=== PATIENT | male | born 1950 | race Caucasian/White ===

== ENCOUNTER 2017-03-04 16:31 | Emergency (ER) | payer MEDICARE ==
[~2017-03-04] VITALS: Ht 180.3 cm; Wt 95.0 kg
[~2017-03-04 16:31] MED LIST: ASPI-496 PO; CARB1TAB13 PO; CARB1TAB3 PO; CHOL400D3 PO; HYDR-3240 PO; MULT-208 PO; NIAC500T9 PO; ROTI1PAT4 TP; SAW450CA2 PO; SIMV20TA3 PO; VALS1TAB24 PO
[2017-03-04 16:48] VITALS: BP 100/64
[2017-03-04] MEDS ORDERED: LIDOCAINE 1%, 20ML SQ ONE (17:00)
[2017-03-04] MEDS ORDERED: LIDOCAINE 1%, 20ML ONE (17:44)
== END 2017-03-04 18:27 | disposition home or self-care (01) ==
LOC: ED 18:21
DX: S01.01XA Laceration without foreign body of scalp, initial encounter (principal); S06.310A Contusion and laceration of right cerebrum without loss of consciousness, initial encounter; G20 Parkinson's disease; E78.5 Hyperlipidemia, unspecified; I10 Essential (primary) hypertension; W18.09XA Striking against other object with subsequent fall, initial encounter; Y93.89 Activity, other specified; Y92.009 Unspecified place in unspecified non-institutional (private) residence as the place of occurrence of the external cause; Y99.9 Unspecified external cause status
CPT/HCPCS: 12001; 70450; 99284

== ENCOUNTER 2019-09-02 05:24 | Day surgery (SDC) | payer MEDICARE ==
[~2019-09-02] VITALS: Ht 177.8 cm; Wt 95.2 kg
[~2019-09-02 05:24] MED LIST changes: +AMAN100T PO; +CARB1CAP5 PO; +CARB1TAB47 PO; +OLME1TAB40 PO; +OMEP-110 PO; -SAW450CA2 PO; +SAW450CA7 PO
[2019-09-02] MEDS ORDERED: LACTATED RINGERS 1,000 ML IV SCH (06:10)
[2019-09-02 06:14] VITALS: BP 117/82
[2019-09-02] MEDS ORDERED: BUPIVACAINE/PF 0.5% ONE (06:54)
[2019-09-02] MEDS ORDERED: BACITRACIN OINT 500U/GM, 15 GM ONE (06:54)
[2019-09-02] MEDS ORDERED: BACITRACIN 50,000 UNIT ONE (06:54)
[2019-09-02] MEDS ORDERED: EPINEPHRINE 1 MG/ML, 1ML ONE (06:54)
[2019-09-02] MEDS ORDERED: THROMBIN 5,000 UNIT VIAL TP ONE (06:54)
[2019-09-02] MEDS ORDERED: FENTANYL PF 250 MCG/5ML ONE (07:18)
[2019-09-02] MEDS ORDERED: MIDAZOLAM 1 MG/ML, 2ML ONE (07:18)
[2019-09-02] MEDS ORDERED: PROPOFOL 10 MG/ML, 20ML ONE (07:19)
[2019-09-02] MEDS ORDERED: CEFAZOLIN 1,000 MG ONE ×2 (07:21)
[2019-09-02] MEDS ORDERED: DEXAMETHASONE 4 MG/ML, 1ML ONE ×2 (07:21)
[2019-09-02] MEDS ORDERED: LIDOCAINE-MPF 2% ,5ML ONE (07:21)
[2019-09-02] MEDS ORDERED: ACETAMINOPHEN 500 MG TABLET PO ONE (07:30)
[2019-09-02] MEDS ORDERED: ONDANSETRON ODT 8 MG PO ONE (07:30)
[2019-09-02] MEDS ORDERED: SUGAMMADEX 200 MG/2 ML IVPush ONE (07:42)
[2019-09-02] MEDS ORDERED: ROCURONIUM 10 MG/ML,10ML ONE (07:42)
[2019-09-02] MEDS ORDERED: hydrALAzine 20 MG/ML, 1ML IV PRN (08:30)
[2019-09-02] MEDS ORDERED: METOCLOPRAMIDE 5 MG/ML, 2ML IV PRN (08:30)
[2019-09-02] MEDS ORDERED: LABETALOL 5MG/ML, 20ML IV PRN (08:30)
[2019-09-02] MEDS ORDERED: OXYcodone 5 MG/5 ML ORAL.SOL UDC PO PRN (08:30)
[2019-09-02] MEDS ORDERED: HYDROmorphone 2 MG/ML, 1ML IVPush PRN (08:30)
[2019-09-02] MEDS ORDERED: ONDANSETRON 2MG/ML, 2ML IV PRN (08:30)
[2019-09-02] MEDS ORDERED: FENTANYL PF 100 MCG/2ML IV PRN (08:30)
[2019-09-02] MEDS ORDERED: MEPERIDINE/PF 25MG/ML,1ML IVPush PRN (08:30)
[2019-09-02] MEDS ORDERED: OMEPRAZOLE 20 MG CAPSULE.DR PO SCH (09:00)
[2019-09-02] MEDS ORDERED: SIMVASTATIN 20 MG TABLET PO SCH (21:00)
== END 2019-09-02 11:45 | disposition home or self-care (01) ==
LOC: OUT 05:24
PROVIDERS: ATTEND Neurological Surgery
DX: Z46.2 Encounter for fitting and adjustment of other devices related to nervous system and special senses (principal); G20 Parkinson's disease; I10 Essential (primary) hypertension; E78.5 Hyperlipidemia, unspecified; Z72.89 Other problems related to lifestyle; Z79.82 Long term (current) use of aspirin; Z79.899 Other long term (current) drug therapy; Z87.891 Personal history of nicotine dependence; Z96.651 Presence of right artificial knee joint; Z82.49 Family history of ischemic heart disease and other diseases of the circulatory system; Z82.61 Family history of arthritis; Z82.3 Family history of stroke; Z80.9 Family history of malignant neoplasm, unspecified
CPT/HCPCS: 36415; 61886; 86850; 86900; C1767; J0171; J0690; J1100; J2250; J2704; J3010; J7120; Q0162

== ENCOUNTER → 2020-11-14 | Outpatient (CLI) | payer MEDICARE ==
[~2020-11-14] MED LIST changes: +HYDR-1067 PO; -HYDR-3240 PO; +OLME-7 PO; -OLME1TAB40 PO; +SIMV20TA19 PO; -SIMV20TA3 PO; -VALS1TAB24 PO; +VALS1TAB25 PO
== END | disposition home or self-care (01) ==
LOC: RAD 14:06
PROVIDERS: ATTEND Physician Assistant Surgical
DX: S43.085S Other dislocation of left shoulder joint, sequela (principal); M75.52 Bursitis of left shoulder; X58.XXXS Exposure to other specified factors, sequela